=== PATIENT | male | born 1970 | race Caucasian/White ===

== ENCOUNTER 2018-07-01 08:23 | Day surgery (SDC) | payer OTHER ==
[2018-07-01] MEDS ORDERED: ceFAZolin 2 GM/DEXTROSE 100 ML IV ONE (08:41)
[2018-07-01] MEDS ORDERED: LR 1,000 ML IV ONE (08:42)
[2018-07-01] MEDS ORDERED: CEFAZOLIN 2 GM/DEXTROSE/100 ML BAG IV ONE (08:47)
[2018-07-01] MEDS ORDERED: BUPIVACAINE 0.25% 30 ML SDV ONE (08:48)
[2018-07-01] MEDS ORDERED: MIDAZOLAM 2 MG/2 ML VIAL IVP ONE (09:41)
--- NOTE | 2018-07-01 09:42 | PDANEPAE ---
ANE Past Medical History - Cardiovascular History Hx Hypertension: No Hx Arrhythmias: No Hx Chest Pain: No Hx Coronary Artery / Peripheral Vascular Disease: No Hx CHF / Valvular Disease: No Hx Palpitations: No - Pulmonary History Hx COPD: No Hx Asthma/Reactive Airway Disease: No Hx Recent Upper Respiratory Infection: No Hx Oxygen in Use at Home: No Hx Sleep Apnea: No Sleep Apnea Screening Result - Last Documented: Negative - Neurologic History Hx Cerebrovascular Accident: No Hx Seizures: No Hx Dementia: No - Endocrine History Hx Diabetes: No - Renal History Hx Renal Disorders: No - Liver History Hx Hepatic Disorders: No - Neurological & Psychiatric Hx Hx Neurological and Psychiatric Disorders: No - Cancer History Hx Cancer: No - Congenital Disorder History Hx Congenital Disorders: No - GI History Hx Gastrointestinal Disorders: No - Other Health History Other Health History: none - Chronic Pain History Chronic Pain: No - Surgical History Prior Surgeries: microdiscectomy. colonoscopy ANE Review of Systems Review of Systems: - Exercise capacity METS (RN): 6 METS ANE Patient History - Allergies Allergies/Adverse Reactions: No Known Allergies Allergy (Verified 06/16/18 16:34) - Home Medications Home Medications: Herbals/Supplements -Info Only 06/16/18 [Last Taken 1 Week Ago ~06/24/18] - NPO status NPO Since - Liquids (Date): 07/01/18 NPO Since - Liquids (Time): 08:20 NPO Since - Solids (Date): 06/30/18 NPO Since - Solids (Time): 19:30 - Smoking Hx Smoking Status: Never smoked - Family Anes Hx Family Hx Anesthesia Complications: none ANE Labs/Vital Signs - Vital Signs Blood Pressure: 122/73 Heart Rate: 41 Respiratory Rate: 14 O2 Sat (%): 96 Height: 187.96 cm Weight: 86.183 kg ANE Physical Exam - Airway Neck exam: FROM Mallampati Score: Class 1 Mouth exam: normal dental/mouth exam - Pulmonary Pulmonary: clear to auscultation - Cardiovascular Cardiovascular: regular rate and rhythym - ASA Status ASA Status: I ANE Anesthesia Plan Anesthesia Plan: general endotracheal anesthesia
[2018-07-01] MEDS ORDERED: PROPOFOL 200 MG/20 ML VIAL ONE (09:43)
[2018-07-01] MEDS ORDERED: fentaNYL 100 MCG/2 ML INJ ONE ×2 (09:43→10:54)
[2018-07-01] MEDS ORDERED: ROCURONIUM 50 MG/5 ML VIAL ONE (09:44)
--- NOTE | 2018-07-01 09:57 | PDHPUP ---
History & Physical Update H&P update statement: This history and physical update is based on an assessment of the patient which was completed after admission or registration (within 24 hours), but prior to the surgery/procedure. H&P update: no change in patient's condition since H&P completed
[2018-07-01] MEDS ORDERED: ePHEDrine SULFATE 25 MG/5 ML SYR ONE (10:06)
[2018-07-01] MEDS ORDERED: DEXAMETHASONE 4 MG/ML VIAL ONE (10:17)
[2018-07-01] MEDS ORDERED: KETOROLAC 30 MG/1 ML SDV ONE (10:17)
[2018-07-01] MEDS ORDERED: MEPERIDINE 25 MG/0.5 ML AMP IVP PRN (10:45)
[2018-07-01] MEDS ORDERED: ONDANSETRON 4 MG/2 ML VIAL IVP PRN (10:45)
[2018-07-01] MEDS ORDERED: PROMETHAZINE HCL 25 MG/ML INJ IVP PRN (10:45)
[2018-07-01] MEDS ORDERED: LR 500 ML IV PRN (10:45)
[2018-07-01] MEDS ORDERED: NALOXONE HCL 0.4 MG/ML INJ IVP PRN (10:45)
[2018-07-01] MEDS ORDERED: HYDROCODONE/APAP 5/325 TAB PO PRN ×2 (10:45→11:19)
[2018-07-01] MEDS ORDERED: HYDROmorphONE/DILAUDID 1 MG/ML INJ IVP PRN (10:45)
[2018-07-01] MEDS ORDERED: oxyCODONE IR 5 MG TAB PO PRN (10:45)
[2018-07-01] MEDS ORDERED: DIAZEPAM 10 MG/2 ML SYR IVP PRN (10:45)
[2018-07-01] MEDS ORDERED: ACETAMINOPHEN 500 MG TAB PO PRN (10:45)
[2018-07-01] MEDS ORDERED: ALBUTEROL 3 ML DEYVIAL IH PRN (10:45)
[2018-07-01] MEDS ORDERED: fentaNYL 100 MCG/2 ML INJ IVP PRN (10:45)
[2018-07-01] MEDS ORDERED: METOCLOPRAMIDE 10 MG/2 ML VIAL IVP PRN (10:45)
[2018-07-01] MEDS ORDERED: SUGAMMADEX SODIUM 200 MG/2 ML VIAL IVP ONE (10:46)
[2018-07-01] MEDS ORDERED: GLYCOPYRROLATE 0.2 MG/1 ML VIAL ONE ×3 (10:47→10:49)
[2018-07-01] MEDS ORDERED: NEOSTIGMINE METHYLSULFATE 10 MG/10 ML MDV ONE (10:48)
--- NOTE | 2018-07-01 11:19 | POSTOPPROG ---
Post Op Note Date of Operation: 07/01/18 Surgeon: Brad Diaz (,FACS) Facility Administrator: Derrell Waller CST-SA Anesthesiologist: Mirian Nolen MD Anesthesia: GET(General Endotracheal) Pre-op Diagnosis: LIH Post-op Diagnosis: direct LIH Procedure: lap repair LIH Findings: direct LIH w/out incarceration Inf/Abcess present in the surg proc area at time of surgery?: No EBL: Minimal (10 ml) Bowel Protocol: N/A Clean Closure Performed: N/A Specimen(s): none
--- NOTE | 2018-07-01 11:36 | POSTANESTH ---
Post Anesthetic Evaluation Cardiovascular Status: Normal, Stable Respiratory Status: Normal, Stable Level of Consciousness/Mental Status: Can Participate in Eval Pain Control: Adequate, Prn Tx Ordered Nausea/Vomiting Control: Adequate, Prn Tx Ordered Complications Possibly Related to Anesthesia: None Noted
[2018-07-01 11:45] VITALS: BP 112/72
--- NOTE | 2018-07-01 12:39 | GOP ---
[f rep st] OPERATIVE REPORT DATE OF OPERATION: 07/01/2018 SURGEON: Brad Diaz MD, FACS RN COMMUNITY: Derrell Horvath CST/ ANESTHESIA: General endotracheal. ANESTHESIOLOGIST: Mirian Nolen MD PREOPERATIVE DIAGNOSIS: Left inguinal hernia. POSTOPERATIVE DIAGNOSIS: Direct left inguinal hernia. PROCEDURE PERFORMED: Laparoscopic preperitoneal left inguinal herniorrhaphy. FINDINGS: Direct left inguinal hernia. No evidence of femoral canal or indirect hernia. ESTIMATED BLOOD LOSS: 10 cc. DESCRIPTION OF PROCEDURE: After informed consent was obtained, the patient was brought to the operating room and placed under general anesthesia. The abdomen was clipped, prepped, and draped in usual fashion. Patient received 2 g of Ancef preoperatively. Before proceeding, a time-out and identification of the patient was performed. 0.25% Marcaine was used to infiltrate all incision sites. A transverse incision was made below the umbilicus and carried through the skin and subcutaneous tissues. The midline fascia was incised just to the left of midline and a plane of dissection was entered posterior to the left rectus muscle and anterior to the left posterior rectus sheath. A balloon dissector was introduced and advanced to the pubis. This was deployed under direct laparoscopic visualization. Subsequently, this was removed and replaced with a structural balloon port. Pneumopreperitoneum was established with CO2 gas to a pressure of 15 mmHg. A 0 degree scope was introduced and the preperitoneal space was visualized. Additional 5 mm ports were placed in the midline part way between the umbilicus and pubis, and in the suprapubic position. This allowed introduction of atraumatic grasping forceps, which were used to dissect the remainder of the preperitoneal space. A moderate-sized direct left inguinal hernia was observed and this was reduced posteriorly. No femoral canal or indirect hernia was noted. The peritoneum was swept clear lateral to the internal ring and a 3D Max mesh (medium left) was brought into the field and passed through the camera port, positioned over the inguinal floor covering the hernial defect, the internal ring, and femoral canal. This was secured to Jaspal ligament with interrupted AbsorbaTack anchoring the mesh to prevent rotation. The pneumopreperitoneum was then evacuated allowing the peritoneum to come in contact with the mesh, holding it firmly in place. The pneumopreperitoneum was then evacuated and the remaining ports were removed. The fascial defect at the umbilicus was closed with interrupted 0 Vicryl sutures. Subcutaneous tissues were closed with 3-0 Vicryl suture. Skin was closed with 4-0 Monocryl suture in a subcuticular fashion. Topical Dermabond was applied. The patient was extubated and brought to the recovery room in satisfactory condition. COUNTS: Needle, sponge, and instrument count were correct. COMPLICATIONS: None. /[id number]/MODL MTDD
== END 2018-07-01 12:40 | disposition home or self-care (01) ==
LOC: FSGY 08:23
PROVIDERS: ATTEND Surgery
PROC: 0YU64JZ Supplement Left Inguinal Region with Synthetic Substitute, Percutaneous Endoscopic Approach (ICD-10-PCS; principal; 2018-07-01 09:45)
DX: K40.90 Unilateral inguinal hernia, without obstruction or gangrene, not specified as recurrent (principal)
CPT/HCPCS: C1781; J0690; J1100; J1885; J2250; J2704; J3010